=== PATIENT | female | born 1985 | race Caucasian/White ===

== ENCOUNTER 2017-03-24 11:01 | Day surgery (SDC) | payer BC ==
[~2017-03-24 11:01] MED LIST: CEFAZOLIN 1 GM INJ
[2017-03-24] MEDS ORDERED: ONDANSETRON 4 MG INJ (13:43)
[2017-03-24] MEDS ORDERED: ROPIVACAINE 0.5 % 30 ML VIAL (13:43)
[2017-03-24] MEDS ORDERED: MIDAZOLAM 1 MG/ML 2 ML INJ ×2 (13:43→14:45)
[2017-03-24] MEDS ORDERED: NEOSTIGMINE 3 MG/3 ML SYRINGE (13:43)
[2017-03-24] MEDS ORDERED: PROPOFOL 20 ML (13:43)
[2017-03-24] MEDS ORDERED: ROCURONIUM 50 MG INJ (13:43)
[2017-03-24] MEDS ORDERED: METOCLOPRAMIDE 10 MG INJ (13:43)
[2017-03-24] MEDS: BUPIVACAINE 0.25% (MPF) 30 ML INJ (13:44)
[2017-03-24] MEDS ORDERED: KETOROLAC 30 MG INJ (13:44)
[2017-03-24] MEDS ORDERED: HYDROmorphONE (0.2 MG/ML) 10ML SYG IV ×2 (14:30)
[2017-03-24] MEDS ORDERED: DIPHENHYDRAMINE 50 MG INJ IV (14:30)
[2017-03-24] MEDS ORDERED: ONDANSETRON 4 MG INJ IV (14:30)
[2017-03-24] MEDS ORDERED: FENTAnyl 50 MCG/ML VIAL (14:42)
[2017-03-24] MEDS: MEPERIDINE 25 MG INJ IV (15:04)
[2017-03-24] MEDS: HYDROmorphONE (0.2 MG/ML) 10ML SYG IV ×2 (15:09→15:28)
[2017-03-24] MEDS: HYDROCODONE/APAP (5/325) TAB PO (15:58)
[2017-03-24] MEDS: morphine 2 MG INJ IV (17:33)
== END 2017-03-24 18:23 | disposition home or self-care (01) ==
LOC: SDS 11:01
DX: K80.20 Calculus of gallbladder without cholecystitis without obstruction (principal)
CPT/HCPCS: 47562; 88304

== ENCOUNTER 2017-11-08 08:48 | Emergency (ER) | payer BC ==
[2017-11-08] MEDS ORDERED: KETOROLAC 60 MG INJ IM (09:42)
[2017-11-08 10:33] LABS: ADD MAN DIFF? NO
[2017-11-08 10:42] LABS: BASOPHILS % 0.5 % (0.0-2.0); EOSINOPHILS # 0.1 10^3/ul (0.0-0.5); EOSINOPHILS % 1.3 % (0.0-7.0); HEMATOCRIT 40.2 % (37.0-47.0); HEMOGLOBIN 13.1 g/dl (12.0-16.0); LYMPHOCYTES # 1.7 10^3/ul (0.8-2.9); LYMPHOCYTES % 19.8 % (15.0-51.0); MEAN CORPUSCULAR HGB CONC 32.6 g/dl (32.0-37.0); MEAN CORPUSCULAR VOLUME 89.1 fl (82.0-101.0); MEAN PLATELET VOLUME 9.8 fl (7.4-10.4); MONOCYTE # 0.6 10^3/ul (0.3-0.9); MONOCYTES % 6.5 % (0.0-11.0); NEUTROPHIL # 6.3 10^3/ul (1.6-7.5); NEUTROPHILS % 71.6 % (39.0-77.0); PLATELET COUNT 246 10^3/UL (140-415); RED BLOOD COUNT 4.51 10^6/ul (4.20-5.40); RED CELL DISTRIBUTION WIDTH 12.9 % (11.5-14.5)
[2017-11-08 10:42] LABS: WHITE BLOOD COUNT 8.8 10^3/ul (4.8-10.8)
[2017-11-08 11:07] LABS: UR BACTERIA FEW /HPF (NONE SEEN); UR MUCUS FEW /HPF (NONE SEEN); UR RBC 2 /HPF (0-5); UR SQUAMOUS EPITHELIAL CELL FEW /HPF (FEW); UR WBC 3 /HPF (0-5)
[2017-11-08 11:16] LABS: ADD UMIC YES; UR ASCORBIC ACID NEGATIVE (NEGATIVE); UR BILIRUBIN (Dip) NEGATIVE (NEGATIVE); UR BLOOD (Dip) NEGATIVE (NEGATIVE); UR CLARITY CLEAR (CLEAR); UR COLOR YELLOW (YELLOW); UR GLUCOSE (Dip) NEGATIVE (NEGATIVE); UR KETONES (Dip) TRACE mg/dL (NEGATIVE); UR LEUKOCYTE ESTERASE (Dip) 1+ Leu/ul (NEGATIVE); UR NITRITE (Dip) NEGATIVE (NEGATIVE); UR SPECIFIC GRAVITY (Dip) 1.009 (1.003-1.030); UR TOTAL PROTEIN (Dip) NEGATIVE (NEGATIVE); UR UROBILINOGEN (Dip) NEGATIVE (NEGATIVE)
== END 2017-11-08 12:01 | disposition home or self-care (01) ==
LOC: FTE 08:48
DX: R10.2 Pelvic and perineal pain (principal); Z33.1 Pregnant state, incidental
CPT/HCPCS: 36415; 76801; 76817; 81001; 81025; 84702; 85025; 86900; 86901; 99284-25